=== PATIENT | male | born 2005 | race Hispanic/Latino ===

== ENCOUNTER 2025-05-10 01:45 | Emergency (ER) | payer SELFPAY | END 2025-05-10 02:45 | LOC: ERS 01:45 → EEVIPCON 01:45 → ERS 02:45 | DX: F10.129 Alcohol abuse with intoxication, unspecified (principal); Y90.9 Presence of alcohol in blood, level not specified; Z55.6 Problems related to health literacy | CPT/HCPCS: 36416; 99284; Q0162 ==